=== PATIENT | male | born 1980 | race Caucasian/White ===

== ENCOUNTER 2021-12-20 13:29 | Emergency (ER) | payer OTHER ==
[~2021-12-20] VITALS: Ht 165.1 cm; Wt 72.6 kg
[2021-12-20 13:45] VITALS: BP_SYST 121
== END 2021-12-20 18:04 | disposition left against medical advice (07) ==
LOC: SED 13:29
DX: H92.09 Otalgia, unspecified ear (principal); Z53.21 Procedure and treatment not carried out due to patient leaving prior to being seen by health care provider